=== PATIENT | female | born 1955 | race Caucasian/White ===

== ENCOUNTER 2017-12-03 19:11 | Emergency (ER) | payer MEDICARE, MEDICAID ==
[~2017-12-03] VITALS: Ht 170.2 cm; Wt 84.2 kg
[~2017-12-03 19:11] MED LIST: AMILORIDE; AMLODIPINE5 MG PO; CALCIUM600 M1; CELEBREX200 MG OR; FOLIC ACID400 MC1 PO; GLIPIZIDE5 M2 PO; HYDROCHLOROT25 MG PO; JANUVIA100 MG PO; LUMIGAN0.03 % OP; METFORMIN HCL1000 MG PO; METFORMIN500 M1 PO; METOPROL TAR50 MG PO; METOPROLOL TART50 MG PO; METOPROLOL50 M1; NEURONTIN600 MG PO; NIFEDICAL XL30 MG; ONE TOUCH ULTRA 100 XX; PAROXETINE20 MG PO; PATADAY OP; PREDNISONE5 MG PO; RANITIDINE75 M3 OR; TRICOR145 MG PO; VOLTAREN75 MG PO; WAL ZAN PO; [UNRECOGNIZED DRUG - SUPPLY] XX; nefedipine
[2017-12-03] MEDS ORDERED: AMLODIPINE BESYL5 MG PO (19:54)
[2017-12-03] MEDS ORDERED: HYDROCHLOROT25 MG PO (19:54)
[2017-12-03] MEDS ORDERED: LOPRESSOR50 M1 PO (19:55)
[2017-12-03] MEDS ORDERED: TRICOR145 MG PO (19:56)
[2017-12-03] MEDS ORDERED: METFORMIN500 MG PO (19:57)
[2017-12-03] MEDS ORDERED: XALATAN0.005 % OU (19:57)
[2017-12-03] MEDS ORDERED: GLUCOTROL5 MG PO (19:58)
[2017-12-03] MEDS ORDERED: TRAMADOL HCL50 MG PO (20:44)
[2017-12-03 20:50] VITALS: BP 166/79
== END 2017-12-03 20:50 | disposition home or self-care (01) ==
LOC: ED 19:11
DX: S20.212A Contusion of left front wall of thorax, initial encounter (principal); S20.211A Contusion of right front wall of thorax, initial encounter; S00.81XA Abrasion of other part of head, initial encounter; S00.511A Abrasion of lip, initial encounter; E11.9 Type 2 diabetes mellitus without complications; I10 Essential (primary) hypertension; E07.9 Disorder of thyroid, unspecified; W10.9XXA Fall (on) (from) unspecified stairs and steps, initial encounter; Y92.89 Other specified places as the place of occurrence of the external cause

== ENCOUNTER → 2018-08-15 | Outpatient (REF) | payer MEDICARE, MEDICAID ==
[~2018-08-15] MED LIST changes: +AMLODIPINE BESYL5 MG PO; +GLUCOTROL5 MG PO; +LOPRESSOR50 M1 PO; +METFORMIN500 MG PO; +TRAMADOL HCL50 MG PO; +XALATAN0.005 % OU
[2018-08-15 11:22] LABS: ALBUMIN 3.9 g/dL (3.2-5.0); ALKALINE PHOSPHATASE 79 u/l (38-126); ANION GAP 12 (6-22 (CALC)); BILIRUBIN, TOTAL 0.7 mg/dL (0.0-1.4); BUN 11 mg/dL (8-23); BUN/CREATININE RATIO 34 (12-20 (CALC)); CARBON DIOXIDE 30 mmol/l (22-30); CHLORIDE 100 mmol/l (95-108); CREATININE 0.3 mg/dL (0.5-1.0); GFR > 60 ML/MIN (>=60 (CALC)); GFR FOR AFR.AMER. > 60 ML/MIN (>=60 (CALC)); POTASSIUM 3.5 mmol/l (3.5-5.1); SGOT/AST 21 u/l (9-36); SODIUM 138 mmol/l (137-146); TOTAL PROTEIN 6.9 g/dL (6.3-8.2)
[2018-08-15 11:45] LABS: TSH, 3RD GENERATION < 0.02 uIU/mL (0.47 - 4.68)
== END | disposition home or self-care (01) ==
LOC: LAB 09:30
PROVIDERS: ATTEND Internal Medicine Geriatric Medicine
DX: E78.2 Mixed hyperlipidemia (principal); E11.9 Type 2 diabetes mellitus without complications; E04.9 Nontoxic goiter, unspecified

== ENCOUNTER → 2018-08-17 | Outpatient (REF) | payer MEDICARE, MEDICAID | END | disposition home or self-care (01) | LOC: LAB 09:54 | PROVIDERS: ATTEND Internal Medicine Geriatric Medicine | DX: E04.9 Nontoxic goiter, unspecified (principal) ==